=== PATIENT | female | born 1960 | race Caucasian/White ===

== ENCOUNTER 2017-07-03 14:06 | Outpatient (RCR) | payer OTHER | END 2017-07-16 | LOC: M PT 14:06 | DX: Z51.89 Encounter for other specified aftercare (principal); M25.512 Pain in left shoulder | CPT/HCPCS: 97010 ==

== ENCOUNTER 2017-07-26 11:22 | Emergency (ER) | payer OTHER | END 2017-07-26 13:01 | disposition home or self-care (01) | LOC: M ED 11:22 | DX: M25.512 Pain in left shoulder (principal); I10 Essential (primary) hypertension; R00.0 Tachycardia, unspecified; F32.9 Major depressive disorder, single episode, unspecified; F41.9 Anxiety disorder, unspecified; Z79.899 Other long term (current) drug therapy; Z88.8 Allergy status to other drugs, medicaments and biological substances | CPT/HCPCS: 73030 ==

== ENCOUNTER → 2017-08-02 | Outpatient (CLI) | payer OTHER | LOC: M RAD 17:20 | DX: S46.812A Strain of other muscles, fascia and tendons at shoulder and upper arm level, left arm, initial encounter (principal); M19.012 Primary osteoarthritis, left shoulder; M94.212 Chondromalacia, left shoulder; M25.412 Effusion, left shoulder; M75.82 Other shoulder lesions, left shoulder; X58.XXXA Exposure to other specified factors, initial encounter; Y92.89 Other specified places as the place of occurrence of the external cause | CPT/HCPCS: 73221 ==

== ENCOUNTER → 2017-12-26 | Outpatient (REF) | LOC: M WHC 14:40 | DX: Z00.00 Encounter for general adult medical examination without abnormal findings (principal) ==

== ENCOUNTER → 2018-01-31 | Outpatient (CLI) | payer OTHER | LOC: M LRY 14:30 | DX: M48.061 Spinal stenosis, lumbar region without neurogenic claudication (principal); M51.36 Other intervertebral disc degeneration, lumbar region; M25.78 Osteophyte, vertebrae; M19.011 Primary osteoarthritis, right shoulder; M19.012 Primary osteoarthritis, left shoulder; M25.712 Osteophyte, left shoulder; M54.2 Cervicalgia; M25.50 Pain in unspecified joint | CPT/HCPCS: 72052 ==

== ENCOUNTER → 2018-01-31 | Outpatient (REF) | payer OTHER ==
[2018-01-31 21:44] LABS: BASO % 0.4 % (0.0-1.0); EOS # 0.1 10^3/uL (0.0-0.50); EOS % 0.7 % (0.0-3.0); HEMATOCRIT 39.9 % (36.0-47.0); HEMOGLOBIN 13.1 g/dl (12.0-15.5); IMMATURE GRANULOCYTE % 0.3 % (0-3.0); LYMPH # 1.9 10^3/uL (1.5-4.5); MEAN CORPUSCULAR HGB CONC 32.8 g/dl (32.0-36.5); MEAN CORPUSCULAR VOLUME 94.3 fl (80.0-96.0); MONO # 0.6 10^3/uL (0.0-0.8); MONO % 8.9 % (0.0-5.0); NEUTROPHILS # 4.3 10^3/uL (1.8-7.7); NEUTROPHILS % 61.7 % (36.0-66.0); PLATELET COUNT, AUTOMATED 224 10^3/uL (150-450); RED BLOOD COUNT 4.23 10^6/uL (4.00-5.40); RED CELL DISTRIBUTION WIDTH 13.7 % (11.5-14.5); WHITE BLOOD COUNT 6.9 10^3/uL (4.0-10.0)
[2018-01-31 21:54] LABS: ALBUMIN/GLOBULIN RATIO 1.48 (1.00-1.93); ALKALINE PHOSPHATASE 63 U/L (45-117); ALT/SGPT 32 U/L (12-78); ANION GAP 10 MEQ/L (8-16); AST/SGOT 14 U/L (7-37); BILIRUBIN,TOTAL 0.3 MG/DL (0.2-1.0); BLOOD UREA NITROGEN 26 MG/DL (7-18); C REACTIVE PROTEIN QUANTITATIV < 0.30 MG/DL (0.00-0.30); CALCIUM LEVEL 9.6 MG/DL (8.5-10.1); CARBON DIOXIDE LEVEL 26 MEQ/L (21-32); CHLORIDE LEVEL 104 MEQ/L (98-107); GLOMERULAR FILTRATION RATE > 60.0 (>51); GLUCOSE, FASTING 84 MG/DL (70-100); RHEUMATOID FACTOR QUANT < 10.0 IU/ML (<15.0); SODIUM LEVEL 140 MEQ/L (136-145); TOTAL PROTEIN 6.7 GM/DL (6.4-8.2)
[2018-01-31 22:16] LABS: ERYTHROCYTE SEDIMENTATION RATE 4 mm/hr (0-30)
[2018-02-03 00:06] LABS: ANA (HEP2) Negative (.); ANTI DOUBLE STRAND-DNA AB <1 IU/mL (0-9); RNP ANTIBODY 0.2 AI (0.0-0.9); SMITHS ANTIBODY < 0.2 AI (0.0-0.9); SSA SJOGRENS A <0.2 AI (0.0-0.9); SSB SJOGRENS B <0.2 AI (0.0-0.9)
[2018-02-03 00:06] LABS: CYCLIC CITRULLINATED PEPTIDE 6 units (0-19)
== END ==
LOC: M SFHCLERA 14:14
DX: M25.50 Pain in unspecified joint (principal)
CPT/HCPCS: 80053

== ENCOUNTER → 2018-02-12 | Outpatient (CLI) | payer OTHER | LOC: M LAB 11:13 | DX: Z01.818 Encounter for other preprocedural examination (principal); M17.11 Unilateral primary osteoarthritis, right knee; I51.7 Cardiomegaly | CPT/HCPCS: 71046 ==

== ENCOUNTER 2018-03-06 10:40 | Inpatient (IN) | payer OTHER ==
[2018-03-06 11:14] LABS: HEMATOCRIT 44.7 % (36.0-47.0); HEMOGLOBIN 14.8 g/dl (12.0-15.5); MEAN CORPUSCULAR HGB CONC 33.1 g/dl (32.0-36.5); MEAN CORPUSCULAR VOLUME 93.7 fl (80.0-96.0); PLATELET COUNT, AUTOMATED 221 10^3/uL (150-450); RED BLOOD COUNT 4.77 10^6/uL (4.00-5.40); RED CELL DISTRIBUTION WIDTH 12.8 % (11.5-14.5); WHITE BLOOD COUNT 7.9 10^3/uL (4.0-10.0)
[2018-03-06 11:27] LABS: INR 0.89; PROTHROMBIN TIME 12.1 SECONDS (12.1-14.4)
[2018-03-06] MEDS: ACETAMINOPHEN 500 MG TAB PO (11:40)
[2018-03-06 11:42] LABS: ALBUMIN 4.2 GM/DL (3.2-5.2); ALBUMIN/GLOBULIN RATIO 1.17 (1.00-1.93); ALKALINE PHOSPHATASE 76 U/L (45-117); ALT/SGPT 29 U/L (12-78); ANION GAP 6 MEQ/L (8-16); AST/SGOT 14 U/L (7-37); BILIRUBIN,TOTAL 0.4 MG/DL (0.2-1.0); BLOOD UREA NITROGEN 20 MG/DL (7-18); CALCIUM LEVEL 9.8 MG/DL (8.5-10.1); CARBON DIOXIDE LEVEL 29 MEQ/L (21-32); CHLORIDE LEVEL 106 MEQ/L (98-107); CREATININE FOR GFR 0.72 MG/DL (0.55-1.30); GLOMERULAR FILTRATION RATE > 60.0 (>51); GLUCOSE, FASTING 105 MG/DL (70-100); POTASSIUM SERUM 4.4 MEQ/L (3.5-5.1); SODIUM LEVEL 141 MEQ/L (136-145); TOTAL PROTEIN 7.8 GM/DL (6.4-8.2)
[2018-03-06 11:57] LABS: ERYTHROCYTE SEDIMENTATION RATE 3 mm/hr (0-30)
[2018-03-06] MEDS: LR 1,000 ML IV ×3 (12:07→21:37)
[2018-03-06] MEDS ORDERED: MIDAZOLAM INJ 2 MG/2 ML VIAL (J2250) As Ordered ×3 (14:07→16:52)
[2018-03-06] MEDS ORDERED: fentaNYL 100 MCG/2 ML INJECTION (J3010) As Ordered ×2 (14:07→15:12)
[2018-03-06] MEDS: fentaNYL 100 MCG/2 ML INJECTION (J3010) IV ×2 (14:29→14:30)
[2018-03-06] MEDS: MIDAZOLAM INJ 2 MG/2 ML VIAL (J2250) IV ×2 (14:29→14:31)
[2018-03-06] MEDS ORDERED: PROPOFOL 200 MG/20 ML VIAL As Ordered ×4 (15:12→18:05)
[2018-03-06] MEDS ORDERED: LIDOCAINE 2% INJ 100 MG/5 ML SDV (FOR ANES.) As Ordered (15:12)
[2018-03-06] MEDS ORDERED: BUPIVACAINE/DEXTROSE 0.75% 2 ML AMP As Ordered (16:23)
[2018-03-06] MEDS ORDERED: fentaNYL 100 MCG/2 ML INJECTION (J3010) IV ×2 (16:30→19:00)
[2018-03-06] MEDS ORDERED: MIDAZOLAM INJ 2 MG/2 ML VIAL (J2250) IV (16:30)
[2018-03-06] MEDS ORDERED: ONDANSETRON 4MG/2ML VIAL (J2405) As Ordered (16:59)
[2018-03-06] MEDS ORDERED: ROPIvacaine 0.5% 30 ML INJECTION (J2795 PER 1MG) (17:00)
[2018-03-06] MEDS ORDERED: LIDOCAINE 1% MDV 20ML VIAL (17:00)
[2018-03-06] MEDS ORDERED: dexameTHASONE 10 MG/1 ML VIAL PRES.FREE (J1100) (17:00)
[2018-03-06] MEDS: TRANEXAMIC ACID 100 MG/ML 10ML VIAL As Ordered (17:10)
[2018-03-06] MEDS: ceFAZolin 1GM INJ (J0690 PER 500MG) As Ordered (17:10)
[2018-03-06] MEDS: EPINEPHrine INJ 1 MG/ML 1ML AMP As Ordered (17:10)
[2018-03-06] MEDS: BUPIVACAINE HCL 0.25% 10 ML VIAL As Ordered (18:10)
[2018-03-06] MEDS: BUPIVACAINE LIPOSOME/PF 1.3% 20ML VIAL (13.3MG/ML)(EXPAREL)(C9290 PER1MG) As Ordered (18:10)
[2018-03-06] MEDS ORDERED: MORPHINE 1MG/ML IN 0.9% NACL 100ML IV BAG As Ordered (18:31)
[2018-03-06] MEDS ORDERED: FLEET ENEMA PR (18:45)
[2018-03-06] MEDS ORDERED: ACETAMINOPHEN TAB 650MG DOSE (2X325MG) PO (18:45)
[2018-03-06] MEDS: MORPHINE 1MG/ML IN 0.9% NACL 100ML IV BAG IV (18:45)
[2018-03-06] MEDS ORDERED: NALOXONE INJ 0.4 MG/1 ML VIAL (J2310) IV (18:45)
[2018-03-06] MEDS ORDERED: EPIDURAL/PCA KEYS XX (18:45)
[2018-03-06] MEDS ORDERED: diphenhydrAMINE INJ 50MG/ML VIAL (J1200) IV (18:45)
[2018-03-06] MEDS ORDERED: NALBUPHINE HCL 10 MG/ML AMP (J2300) IV (18:45)
[2018-03-06] MEDS ORDERED: ONDANSETRON 4MG/2ML VIAL (J2405) IV ×2 (18:45→19:00)
[2018-03-06] MEDS ORDERED: MORPHINE 10 MG/ML 1ML VIAL (J2270) IV (19:00)
[2018-03-07] MEDS: VENLAFAXINE 37.5 MG TAB PO ×2 (05:21→15:08)
[2018-03-07 05:49] LABS: HEMATOCRIT 33.9 % (36.0-47.0); MEAN CORPUSCULAR HEMOGLOBIN 30.5 pg (27.0-33.0); MEAN CORPUSCULAR HGB CONC 33.3 g/dl (32.0-36.5); MEAN CORPUSCULAR VOLUME 91.6 fl (80.0-96.0); PLATELET COUNT, AUTOMATED 188 10^3/uL (150-450); RED CELL DISTRIBUTION WIDTH 12.7 % (11.5-14.5)
[2018-03-07 05:54] LABS: HEMOGLOBIN 11.3 g/dl (12.0-15.5)
[2018-03-07 06:01] LABS: INR 0.99; PROTHROMBIN TIME 13.2 SECONDS (12.1-14.4)
[2018-03-07 06:06] LABS: ANION GAP 7 MEQ/L (8-16); BLOOD UREA NITROGEN 14 MG/DL (7-18); CALCIUM LEVEL 8.9 MG/DL (8.5-10.1); CARBON DIOXIDE LEVEL 27 MEQ/L (21-32); CHLORIDE LEVEL 105 MEQ/L (98-107); CREATININE FOR GFR 0.64 MG/DL (0.55-1.30); GLOMERULAR FILTRATION RATE > 60.0 (>51); GLUCOSE, FASTING 147 MG/DL (70-100); POTASSIUM SERUM 4.1 MEQ/L (3.5-5.1); SODIUM LEVEL 139 MEQ/L (136-145)
[2018-03-07] MEDS ORDERED: PERCOCET 5MG/325MG TAB PO (06:30)
[2018-03-07] MEDS: OLMESARTAN MEDOXOMIL 20 MG TAB (BENICAR) PO (09:00)
[2018-03-07] MEDS: MOM 30ML SUSPENSION UDC PO (09:00)
[2018-03-07] MEDS: SENOKOT S TAB PO ×2 (09:00→20:34)
[2018-03-07] MEDS ORDERED: VERAPAMIL 40 MG TAB PO (09:00)
[2018-03-07] MEDS: MIRALAX *UNIT DOSE* 17GM PACKET PO (09:00)
[2018-03-07] MEDS: ALPRAZolam 0.5 MG TAB PO (09:00)
[2018-03-07] MEDS: buPROPion **XL** TABLET 150MG (WELLBUTRIN XL) PO (09:00)
[2018-03-07] MEDS ORDERED: ALPRAZolam 0.25 MG TAB PO (10:00)
[2018-03-07] MEDS: VERAPAMIL 120 MG SR TAB PO (10:24)
[2018-03-07] MEDS: PERCOCET 5MG/325MG TAB PO ×3 (11:28→20:35)
[2018-03-07] MEDS: ONDANSETRON 4 MG TAB (S0181) PO (14:19)
[2018-03-07] MEDS ORDERED: MORPHINE 15 MG SA TAB PO (16:15)
[2018-03-07] MEDS: MORPHINE 15 MG SA TAB PO (16:17)
[2018-03-07] MEDS: RIVAROXABAN 10 MG TAB (XARELTO) PO (17:04)
[2018-03-08] MEDS: PERCOCET 5MG/325MG TAB PO ×3 (00:56→09:53)
[2018-03-08] MEDS: MORPHINE 15 MG SA TAB PO (04:29)
[2018-03-08] MEDS: VENLAFAXINE 37.5 MG TAB PO (05:46)
[2018-03-08 06:01] LABS: HEMATOCRIT 30.7 % (36.0-47.0); HEMOGLOBIN 10.2 g/dl (12.0-15.5); MEAN CORPUSCULAR HEMOGLOBIN 30.6 pg (27.0-33.0); MEAN CORPUSCULAR HGB CONC 33.2 g/dl (32.0-36.5); MEAN CORPUSCULAR VOLUME 92.2 fl (80.0-96.0); PLATELET COUNT, AUTOMATED 164 10^3/uL (150-450); RED BLOOD COUNT 3.33 10^6/uL (4.00-5.40); RED CELL DISTRIBUTION WIDTH 12.9 % (11.5-14.5)
[2018-03-08 06:20] LABS: ANION GAP 8 MEQ/L (8-16); BLOOD UREA NITROGEN 18 MG/DL (7-18); CALCIUM LEVEL 9.3 MG/DL (8.5-10.1); CARBON DIOXIDE LEVEL 29 MEQ/L (21-32); CHLORIDE LEVEL 98 MEQ/L (98-107); CREATININE FOR GFR 0.56 MG/DL (0.55-1.30); GLOMERULAR FILTRATION RATE > 60.0 (>51); GLUCOSE, FASTING 140 MG/DL (70-100); POTASSIUM SERUM 3.4 MEQ/L (3.5-5.1); SODIUM LEVEL 135 MEQ/L (136-145)
[2018-03-08] MEDS: KETOROLAC 30 MG/ML VIAL (J1885) IV (06:45)
[2018-03-08] MEDS: MOM 30ML SUSPENSION UDC PO (08:07)
[2018-03-08] MEDS: SENOKOT S TAB PO (08:07)
[2018-03-08] MEDS: buPROPion **XL** TABLET 150MG (WELLBUTRIN XL) PO (08:07)
[2018-03-08] MEDS: MIRALAX *UNIT DOSE* 17GM PACKET PO (08:07)
[2018-03-08] MEDS: OLMESARTAN MEDOXOMIL 20 MG TAB (BENICAR) PO (08:08)
[2018-03-08] MEDS: VERAPAMIL 120 MG SR TAB PO (08:08)
[2018-03-08] MEDS: POTASSIUM CHLORIDE 10 MEQ SR TABLET PO (09:53)
== END 2018-03-08 12:33 | disposition home or self-care (01) | DRG 470 ==
LOC: M OR 10:40 → M MS5PR 19:40
PROC: 0SRC0J9 Replacement of Right Knee Joint with Synthetic Substitute, Cemented, Open Approach (ICD-10-PCS; principal; 2018-03-06 14:30)
DX: M17.11 Unilateral primary osteoarthritis, right knee (principal); F33.9 Major depressive disorder, recurrent, unspecified; Z79.899 Other long term (current) drug therapy; G47.33 Obstructive sleep apnea (adult) (pediatric); I10 Essential (primary) hypertension

== ENCOUNTER → 2018-06-11 | Outpatient (CLI) | payer OTHER ==
[~2018-06-11] MED LIST: ALBU17IN INH; BENI40TA26 PO; BENI40TA28 PO; COUM2.5T17 PO; GLUCPOW24 PO; KETO10TAB PO; MORP15TASA PO; OXYC-141 PO; PERC5TAB12 PO; TRAM50TA2 PO; Tumeric PO; VENL37TA PO; VERA1TAB11 PO; WELLTAB40 PO; XANA0.25 PO; XANA0.5T PO; XARE10TA PO
--- NOTE | 2018-06-12 06:40 | ECHO ---
DATE OF PROCEDURE: 06/11/2018 REFERRING PHYSICIAN: Dr. Vick INDICATION: Abnormal ECG. HEIGHT: 157 cm WEIGHT: 97 kg. DIMENSIONS: IVS: 1.1 LV: 4.1 LVPW: 1.1 LA: 3.6 Aorta: 3.4 Mitral E wave velocity: 72 A wave: 81 E prime septal: 7.1 E prime lateral: 7.4 IVC: 1.7 FINDINGS: The study is of fair technical quality with difficult visualization. Left ventricle is of normal size. There is probably normal LV systolic function with estimated LVEF around 60-65%. Unfortunately due to limitation of the study, I am unable to reliably rule out segmental wall motion abnormalities. Right ventricle appears normal. Both atria appear normal. Aortic, mitral and tricuspid valves appear normal. Pulmonic valve was not well seen. No pericardial effusion is noted. Inferior vena cava is normal size. Aortic root, aortic arch and abdominal aorta appear normal. Doppler interrogation of aortic valve reveals no stenosis or insufficiency. There is also no mitral stenosis or insufficiency. Tricuspid valve also is functionally competent. Mitral inflow pattern and tissue Doppler imaging of mitral annulus revealed grade 1 diastolic dysfunction. CONCLUSIONS: 1. Study is of acceptable technical quality. 2. Normal LV size with normal LV systolic function and grade 1 diastolic dysfunction. 3. No significant valvular disease. 4. Normal central venous pressure. 5. Unable to estimate pulmonary artery pressure under COMMENTS: Subacute bacterial endocarditis (SBE) prophylaxis is not recommended.
== END ==
LOC: M CARPUL 09:00
PROVIDERS: ATTEND Family Medicine
DX: R06.02 Shortness of breath (principal); R94.31 Abnormal electrocardiogram [ECG] [EKG]

== ENCOUNTER → 2020-04-28 | Outpatient (CLI) | payer OTHER ==
[~2020-04-28] MED LIST changes: +VERA180T3 PO; -VERA1TAB11 PO
[2020-04-28 13:24] LABS: BASO % 0.6 % (0.0-1.0); EOS % 0.5 % (0.0-3.0); HEMATOCRIT 41.1 % (36.0-47.0); HEMOGLOBIN 13.3 g/dl (12.0-15.5); LYMPH # 1.6 10^3/uL (1.5-5.0); LYMPH % 24.9 % (24.0-44.0); MEAN CORPUSCULAR HEMOGLOBIN 30.7 pg (27.0-33.0); MEAN CORPUSCULAR HGB CONC 32.4 g/dl (32.0-36.5); MEAN CORPUSCULAR VOLUME 94.9 fl (80.0-96.0); MONO # 0.5 10^3/uL (0.0-0.8); MONO % 8.4 % (0.0-5.0); NEUTROPHILS # 4.2 10^3/uL (1.5-8.5); NEUTROPHILS % 65.1 % (36.0-66.0); PLATELET COUNT, AUTOMATED 211 10^3/uL (150-450); RED BLOOD COUNT 4.33 10^6/uL (4.00-5.40); WHITE BLOOD COUNT 6.4 10^3/uL (4.0-10.0)
[2020-04-28 13:58] LABS: ALT/SGPT 28 U/L (12-78); BILIRUBIN,TOTAL 0.3 MG/DL (0.2-1.0); BLOOD UREA NITROGEN 21 MG/DL (7-18); CARBON DIOXIDE LEVEL 30 MEQ/L (21-32); CHLORIDE LEVEL 102 MEQ/L (98-107); CHOLESTEROL LEVEL 216 MG/DL (<200); CHOLESTEROL RISK RATIO 3.375 (<5); CREATININE FOR GFR 0.75 MG/DL (0.55-1.30); FREE T4 0.84 NG/DL (0.76-1.46); GLOMERULAR FILTRATION RATE > 60.0 (>45); GLUCOSE, FASTING 105 MG/DL (70-100); HDL CHOLESTEROL 64 MG/DL (>40); LDL CHOLESTEROL 128 MG/DL (<100); NON-HDL-C 152 MG/DL; POTASSIUM SERUM 4.8 MEQ/L (3.5-5.1); SODIUM LEVEL 137 MEQ/L (136-145); TOTAL PROTEIN 6.6 GM/DL (6.4-8.2); TRIGLYCERIDES LEVEL 122 MG/DL (<150)
[2020-04-28 14:55] LABS: HEMOGLOBIN A1c 5.5 %
== END ==
LOC: M PLALAB 09:33
PROVIDERS: ATTEND Physician Assistant
DX: R73.01 Impaired fasting glucose (principal); I10 Essential (primary) hypertension; E78.2 Mixed hyperlipidemia; Z13.0 Encounter for screening for diseases of the blood and blood-forming organs and certain disorders involving the immune mechanism

== ENCOUNTER → 2023-11-20 | Outpatient (CLI) | payer MEDICARE ==
[~2023-11-20] MED LIST changes: -BENI40TA26 PO; -BENI40TA28 PO; +OLME-2 PO; +OLME40TA56 PO; -VERA180T3 PO; +VERA180T42 PO
== END ==
LOC: M RAD 16:02
PROVIDERS: ATTEND Nurse Practitioner Adult Health
DX: M16.11 Unilateral primary osteoarthritis, right hip (principal); M25.451 Effusion, right hip; M25.551 Pain in right hip

== ENCOUNTER → 2024-06-11 | Outpatient (CLI) | payer MEDICARE ==
[2024-06-11 10:51] LABS: BASO % 0.6 % (0.0-1.0); EOS % 0.6 % (0.0-3.0); HEMATOCRIT 39.6 % (36.0-47.0); HEMOGLOBIN 13.2 g/dl (12.0-15.5); LYMPH # 1.4 10^3/uL (1.5-5.0); LYMPH % 22.5 % (24.0-44.0); MEAN CORPUSCULAR HEMOGLOBIN 31.4 pg (27.0-33.0); MEAN CORPUSCULAR HGB CONC 33.3 g/dl (32.0-36.5); MEAN CORPUSCULAR VOLUME 94.1 fl (80.0-96.0); MONO # 0.6 10^3/uL (0.0-0.8); MONO % 8.7 % (2.0-8.0); NEUTROPHILS # 4.2 10^3/uL (1.5-8.5); NEUTROPHILS % 67.1 % (36.0-66.0); PLATELET COUNT, AUTOMATED 202 10^3/uL (150-450); RED BLOOD COUNT 4.21 10^6/uL (4.00-5.40); WHITE BLOOD COUNT 6.3 10^3/uL (4.0-10.0)
[2024-06-11 11:19] LABS: ALBUMIN 3.7 G/DL (3.2-5.2); ALKALINE PHOSPHATASE 91 U/L (35-104); ALT/SGPT 17 U/L (7.0-40); AST/SGOT 11 U/L (<34); BILIRUBIN,TOTAL 0.5 MG/DL (0.3-1.2); BLOOD UREA NITROGEN 11 MG/DL (9-23); CALCIUM LEVEL 9.9 MG/DL (8.3-10.6); CARBON DIOXIDE LEVEL 30 MMOL/L (20-31); CHLORIDE LEVEL 105 MMOL/L (98-107); CREATININE FOR GFR 0.58 MG/DL (0.55-1.30); GLOMERULAR FILTRATION RATE > 60.0 (>45); GLUCOSE, FASTING 83 MG/DL (74-106); POTASSIUM SERUM 3.6 MMOL/L (3.5-5.1); SODIUM LEVEL 141 MMOL/L (136-145); TOTAL PROTEIN 6.5 G/DL (5.7-8.2)
== END ==
LOC: M LAB 10:05
PROVIDERS: ATTEND Neuromusculoskeletal Medicine, Sports Medicine
DX: M16.11 Unilateral primary osteoarthritis, right hip (principal)

== ENCOUNTER → 2024-06-20 | Outpatient (CLI) | payer MEDICARE ==
[~2024-06-20] MED LIST changes: +ACET300T47; +ACET650T61 PO; +ALBU8.5H; +CELE0.09 PO; +DULO1CAP5 PO; +GABA-1172 PO; +MULTTAB61 PO; +NEUR100C PO; +OLME40TA PO; +SUZE50TA PO; +TRAN1DIS4; +VITA100093 PO
== END ==
LOC: M RAD 07:09
PROVIDERS: ATTEND Neuromusculoskeletal Medicine, Sports Medicine
DX: M16.11 Unilateral primary osteoarthritis, right hip (principal); K80.20 Calculus of gallbladder without cholecystitis without obstruction; M47.816 Spondylosis without myelopathy or radiculopathy, lumbar region; Z96.653 Presence of artificial knee joint, bilateral

== ENCOUNTER 2024-07-03 11:57 | Outpatient (RCR) | payer MEDICARE ==
[~2024-07-03 11:57] MED LIST changes: -ACET300T47; +ACET300T47 PO; -ALBU8.5H; +ALBU8.5H INH; +MORP-138 PO; -MORP15TASA PO
[2024-07-09] MEDS ORDERED: TRAN1DIS4 TOP (09:36)
[2024-07-09] MEDS ORDERED: ALPR0.25 PO (09:36)
[2024-07-09] MEDS ORDERED: OXYC1TAB23 PO (10:35)
[2024-07-09] MEDS ORDERED: FERR1TAB8 PO (10:35)
[2024-07-09] MEDS ORDERED: ASPI81TAEC PO (10:35)
== END 2024-07-16 ==
LOC: M PT 11:57
PROVIDERS: ATTEND Neuromusculoskeletal Medicine, Sports Medicine
DX: M16.11 Unilateral primary osteoarthritis, right hip (principal); Z96.641 Presence of right artificial hip joint

== ENCOUNTER → 2024-07-04 | Outpatient (REF) | payer MEDICARE ==
[~2024-07-04] MED LIST changes: +ACET300T47; -ACET300T47 PO; +ALBU8.5H; -ALBU8.5H INH; -MORP-138 PO; +MORP15TASA PO
== END ==
LOC: M LAB REF 12:51
PROVIDERS: ATTEND Physician Assistant
DX: M16.11 Unilateral primary osteoarthritis, right hip (principal)

== ENCOUNTER 2024-07-08 10:48 | Observation (INO) | payer MEDICARE ==
[~2024-07-08] VITALS: Ht 154.9 cm; Wt 73.1 kg
[~2024-07-08 10:48] MED LIST changes: -ACET300T47; +ACET300T47 PO; +ACETAMINOPHEN 1000MG/100ML IV BAG As Ordered ONE; -ALBU8.5H; +ALBU8.5H INH; +LIDOCAINE 2% 100MG/5ML SDV (FOR ANES.) As Ordered ONE; +MIDAZOLAM INJ 2MG/2ML VIAL As Ordered ONE; +MORP-138 PO; -MORP15TASA PO; +ONDANSETRON 4MG 2ML VIAL As Ordered ONE; +fentaNYL 100 MCG/2 ML INJECTION As Ordered ONE; +propofoL 200 MG/20 ML VIAL As Ordered ONE
[2024-07-08] MEDS ORDERED: LR 1,000 ML IV SCH ×2 (11:10→16:55)
[2024-07-08] MEDS: ceFAZolin SOD 2 GM IV ONCE IV ONE (13:53)
[2024-07-08] MEDS: TRANEXAMIC ACID 100 MG/ML 10ML VIAL As Ordered ONE (13:59)
[2024-07-08] MEDS ORDERED: ePHEDrine SULFATE 25 MG/5 ML(5MG/ML) SYRINGE As Ordered ONE (14:10)
[2024-07-08] MEDS ORDERED: PHENYLephrine 500MCG 5ML (100MCG/ML) SYRINGE As Ordered ONE (14:18)
[2024-07-08] MEDS ORDERED: dexmedeTOMIDine (4MCG/ML)200MCG/50ML BTL (PRECEDEX) As Ordered ONE (14:57)
[2024-07-08] MEDS: VANCOMYCIN 500MG/10ML VIAL As Ordered ONE (16:05)
[2024-07-08] MEDS: KETOROLAC 30 MG/ML 1ML VIAL As Ordered ONE (16:30)
[2024-07-08] MEDS: BUPivacaine LIPOSOME/PF 266MG 20ML VIAL (13.3MG/ML)(EXPAREL) As Ordered ONE (16:30)
[2024-07-08] MEDS ORDERED: SENNA 8.6 MG TAB (SENOKOT) PO PRN (16:55)
[2024-07-08] MEDS ORDERED: ONDANSETRON 4MG 2ML VIAL IV PRN (16:55)
[2024-07-08] MEDS ORDERED: oxyCODONE 5MG TAB PO PRN (16:55)
[2024-07-08] MEDS: ONDANSETRON 4MG 2ML VIAL IV PRN (17:14)
[2024-07-08] MEDS: oxyCODONE 5MG TAB PO PRN ×2 (17:14→19:54)
[2024-07-08] MEDS: fentaNYL 100 MCG/2 ML INJECTION IV PRN (17:15)
[2024-07-08] MEDS ORDERED: ALBUTEROL 90 MCG/ACT 8GM HFA INHALER INH PRN (17:50)
[2024-07-08] MEDS ORDERED: ALPRAZolam 0.5 MG TAB PO SCH (17:50)
[2024-07-08] MEDS ORDERED: MOM 30ML SUSPENSION UDC PO PRN (17:50)
[2024-07-08] MEDS: LR 1,000 ML IV SCH (17:57)
[2024-07-08 18:15] VITALS: BP 145/87; TEMP 97.5; O2SAT 99
[2024-07-08 18:38] LABS: HEMATOCRIT 35.6 % (36.0-47.0); HEMOGLOBIN 11.5 g/dl (12.0-15.5); MEAN CORPUSCULAR HEMOGLOBIN 31.1 pg (27.0-33.0); MEAN CORPUSCULAR HGB CONC 32.3 g/dl (32.0-36.5); MEAN CORPUSCULAR VOLUME 96.2 fl (80.0-96.0); PLATELET COUNT, AUTOMATED 194 10^3/uL (150-450); WHITE BLOOD COUNT 17.2 10^3/uL (4.0-10.0)
[2024-07-08] MEDS: ACETAMINOPHEN 325 MG TAB PO SCH (18:39)
[2024-07-08 18:45] VITALS: BP 141/82; TEMP 99; O2SAT 95
[2024-07-08 19:45] VITALS: BP 116/74; TEMP 98.6; O2SAT 95
[2024-07-08 20:23] VITALS: BP 115/74; TEMP 98.2; O2SAT 95
[2024-07-08] MEDS ORDERED: VENLAFAXINE 37.5 MG TAB PO SCH (21:00)
[2024-07-08] MEDS ORDERED: DULoxetine 30MG CAPSULE (CYMBALTA) PO SCH (21:00)
[2024-07-08] MEDS: DOCUSATE SODIUM 100MG CAPSULE PO SCH (21:00)
[2024-07-08] MEDS ORDERED: VERAPAMIL 180MG EXTENDED RELEASE TABLET PO SCH (21:00)
[2024-07-08] MEDS ORDERED: GABAPENTIN 300 MG CAP PO SCH (21:00)
[2024-07-08] MEDS: NAPROXEN 250 MG TAB PO SCH (21:11)
[2024-07-08] MEDS: ceFAZolin SODIUM 2 GM in DEXTROSE 5% (D5W) ADV/MINI-BAG 50 ML IV SCH (21:11)
[2024-07-08 21:22] VITALS: BP 114/74; TEMP 97.2; O2SAT 94
[2024-07-08 22:44] VITALS: BP 131/73; TEMP 97.7; O2SAT 95
[2024-07-09 02:33] VITALS: BP 124/72; TEMP 97.5; O2SAT 95
[2024-07-09 06:10] LABS: HEMATOCRIT 28.8 % (36.0-47.0); HEMOGLOBIN 9.6 g/dl (12.0-15.5); MEAN CORPUSCULAR HEMOGLOBIN 31.9 pg (27.0-33.0); MEAN CORPUSCULAR HGB CONC 33.3 g/dl (32.0-36.5); MEAN CORPUSCULAR VOLUME 95.7 fl (80.0-96.0); PLATELET COUNT, AUTOMATED 174 10^3/uL (150-450); RED BLOOD COUNT 3.01 10^6/uL (4.00-5.40); WHITE BLOOD COUNT 15.4 10^3/uL (4.0-10.0)
[2024-07-09 06:27] VITALS: BP 129/74; TEMP 98.2; O2SAT 90
[2024-07-09] MEDS ORDERED: ALPRAZolam 0.25 MG TAB PO PRN (07:15)
[2024-07-09] MEDS ORDERED: GABAPENTIN 100 MG CAP PO SCH ×2 (07:15→21:00)
[2024-07-09 08:00] VITALS: BP 142/72; TEMP 99.5; O2SAT 98
[2024-07-09 08:40] LABS: BLOOD UREA NITROGEN 15 MG/DL (9-23); CALCIUM LEVEL 10.1 MG/DL (8.3-10.6); CARBON DIOXIDE LEVEL 28 MMOL/L (20-31); CHLORIDE LEVEL 103 MMOL/L (98-107); CREATININE FOR GFR 0.56 MG/DL (0.55-1.30); FOLATE 16.89 NG/ML (>5.4); GLOMERULAR FILTRATION RATE > 90.0 (>45); GLUCOSE, FASTING 178 MG/DL (74-106); IRON (FE) 47 UG/DL (50-170); PERCENT SATURATION 18.8 % (13.2-45.0); POTASSIUM SERUM 3.8 MMOL/L (3.5-5.1); SODIUM LEVEL 140 MMOL/L (136-145); TOTAL IRON BINDING CAPACITY 250 UG/DL (250-425)
[2024-07-09 08:41] LABS: FERRITIN 193.1 NG/ML (7.3-270.7)
[2024-07-09 08:42] LABS: VITAMIN B12 LEVEL 700 PG/ML (211-911)
[2024-07-09] MEDS: ASCORBIC ACID 500 MG TAB PO SCH (08:42)
[2024-07-09] MEDS: FERROUS SULFATE 325MG TAB PO SCH (08:44)
[2024-07-09] MEDS: ASPIRIN 81MG ENTERIC TABLET PO SCH (08:45)
[2024-07-09] MEDS ORDERED: buPROPion **XL** TABLET 150MG (WELLBUTRIN XL) PO SCH (09:00)
[2024-07-09] MEDS ORDERED: BISACODYL 5MG TAB PO SCH (09:00)
[2024-07-09] MEDS ORDERED: buPROPion 75 MG TAB PO SCH (09:00)
[2024-07-09] MEDS ORDERED: OLMESARTAN MEDOXOMIL 20 MG TAB (BENICAR) PO SCH ×2 (09:00)
[2024-07-09] MEDS ORDERED: VITAMIN D 1,000 INTERNATIONAL UNITS TABLET PO SCH (09:00)
[2024-07-09] MEDS ORDERED: MULTIVITAMINS/MINERALS THERAP 1 TAB PO SCH (09:00)
[2024-07-09] MEDS ORDERED: VERAPAMIL 180MG EXTENDED RELEASE TABLET PO SCH (09:00)
[2024-07-09] MEDS ORDERED: ALPR0.25 PO (09:36)
[2024-07-09] MEDS ORDERED: TRAN1DIS4 TOP (09:36)
[2024-07-09] MEDS ORDERED: HOME MED LIST COMPLETE! XX SCH (09:40)
[2024-07-09] MEDS ORDERED: FERR1TAB8 PO (10:35)
[2024-07-09] MEDS ORDERED: ASPI81TAEC PO (10:35)
[2024-07-09] MEDS ORDERED: OXYC1TAB23 PO (10:35)
[2024-07-09] MEDS: DULoxetine 30MG CAPSULE (CYMBALTA) PO ONE (10:48)
[2024-07-09] MEDS: buPROPion **XL** TABLET 150MG (WELLBUTRIN XL) PO ONE (10:48)
== END 2024-07-09 13:25 | disposition home health service (06) ==
LOC: M SDC 10:48 → M MS5PR 10:49 → UNDOADMOB 10:49 → M MS5PR 17:48 → INTOOBSV 17:48 → OBSVTOIN 17:48 → M MS5PR 18:10
PROVIDERS: ADMIT Neuromusculoskeletal Medicine, Sports Medicine; ATTEND Neuromusculoskeletal Medicine, Sports Medicine
DX: M16.11 Unilateral primary osteoarthritis, right hip (principal); G47.33 Obstructive sleep apnea (adult) (pediatric); I10 Essential (primary) hypertension; J45.909 Unspecified asthma, uncomplicated; F41.9 Anxiety disorder, unspecified; F32.A Depression, unspecified; G62.9 Polyneuropathy, unspecified; G47.00 Insomnia, unspecified; R00.0 Tachycardia, unspecified; Z79.82 Long term (current) use of aspirin; Z79.899 Other long term (current) drug therapy; Z88.1 Allergy status to other antibiotic agents
CPT/HCPCS: 27130; 36415; 73501; 80048; 82607; 82728; 82746; 83550; 85027; 88300; 96365; 96366; 96375; 97116; 97161; 97165; 97530; 97535; C1776; G0378; J0131; J0665; J0666; J0690; J1100; J1885; J2250; J2371; J2405; J3010; J3370; S2900

== ENCOUNTER → 2024-07-17 | Outpatient (CLI) | payer MEDICARE ==
[~2024-07-17] MED LIST changes: -ACETAMINOPHEN 1000MG/100ML IV BAG As Ordered ONE; +ALPR0.25 PO; +ASPI81TAEC PO; +FERR1TAB8 PO; -LIDOCAINE 2% 100MG/5ML SDV (FOR ANES.) As Ordered ONE; -MIDAZOLAM INJ 2MG/2ML VIAL As Ordered ONE; -ONDANSETRON 4MG 2ML VIAL As Ordered ONE; +OXYC1TAB23 PO; +TRAN1DIS4 TOP; -fentaNYL 100 MCG/2 ML INJECTION As Ordered ONE; -propofoL 200 MG/20 ML VIAL As Ordered ONE
== END ==
LOC: M SOG 07:51
PROVIDERS: ATTEND Physician Assistant
DX: M16.11 Unilateral primary osteoarthritis, right hip (principal); Z96.641 Presence of right artificial hip joint

== ENCOUNTER 2024-12-03 13:47 | Outpatient (RCR) | payer MEDICARE | END 2024-12-16 | LOC: M PT 13:47 | PROVIDERS: ATTEND Nurse Practitioner Adult Health | DX: M54.50 Low back pain, unspecified (principal) ==

== ENCOUNTER 2025-01-08 13:30 | Outpatient (RCR) | payer MEDICARE | END 2025-01-16 | LOC: M PT 13:30 | PROVIDERS: ATTEND Nurse Practitioner Adult Health | DX: M54.50 Low back pain, unspecified (principal) ==